=== PATIENT | male | born 1985 | race Caucasian/White ===

== ENCOUNTER 2022-07-18 12:18 | Emergency (ER) | payer OTHER ==
[~2022-07-18] VITALS: Ht 177.8 cm; Wt 74.8 kg
[~2022-07-18 12:18] MED LIST: ALBU90OI INH; CLOT1TC TOP; CODGUAEL PO; Cyclobenzaprine5 MG PO; FLUC200 PO; IBUP800 PO; Monodox100 MG PO; NYST100TO TOP; Norco 5-325 Ta1 EACH PO; SPACE CHAMBER1 EACH MC
[2022-07-18] MEDS ORDERED: HYDR1TAB94 PO (16:51)
== END 2022-07-18 17:04 | disposition home or self-care (01) ==
LOC: ER 12:18
DX: S32.031A Stable burst fracture of third lumbar vertebra, initial encounter for closed fracture (principal); S92.142A Displaced dome fracture of left talus, initial encounter for closed fracture; F17.210 Nicotine dependence, cigarettes, uncomplicated; Z79.899 Other long term (current) drug therapy; W11.XXXA Fall on and from ladder, initial encounter
CPT/HCPCS: 29515; 72070; 72100; 72131; 73610; 73700; 99284-25; A9270